=== PATIENT | female | born 1970 | race Caucasian/White ===

== ENCOUNTER 2018-03-09 05:00 | Day surgery (SDC) | payer BC ==
[2018-03-08 16:03] LABS: HEMATOCRIT 35.7 % (36.0-48.0); HEMOGLOBIN 12.3 g/dL (12-16); MCH 31.1 pg (26.0-34.0); MCHC 34.5 g/dL (31.0-37.0); MCV 90.2 fL (80.0-100.0); RBC 3.96 10x6/uL (4.00-5.40); RDW 11.9 % (11.5-14.5); WBC 8.6 10x3/uL (4.8-10.8)
[~2018-03-09] VITALS: Ht 162.6 cm; Wt 97.5 kg
--- NOTE | ~2018-03-09 | OP ---
PATIENT NAME: RICA ROSENBERG MEDICAL RECORD: [id number] :66 LOCATION:[facility] ADMISSION DATE: SURGEON: XOCHILT RICHMOND DPM DATE OF OPERATION: 03/09/2018 PREOPERATIVE DIAGNOSIS: Tailor's bunion, left foot. POSTOPERATIVE DIAGNOSIS: Tailor's bunion, left foot. PROCEDURE: Tailor's bunionectomy, left foot. ANESTHESIA: Local with IV sedation utilizing 10 cc of 1:1 mix of lidocaine and Marcaine plain around the fifth ray of the left foot. HEMOSTASIS: Left ankle tourniquet at 250 mmHg. PREOPERATIVE DETAILS: The patient was taken to the OR and placed on the operating table in a supine position. This was followed by induction of general anesthesia and infiltration of local anesthetic. The left extremity was then prepped and draped in usual aseptic technique followed by exsanguination and inflation of tourniquet. A 15 blade was used to create a 2 cm linear incision over the dorsal aspect of the fifth metatarsal head. The incision was deepened down through subcutaneous tissue being sure to avoid the sural nerve and a linear capsulotomy was made in the fifth MPJ. The head of the fifth metatarsal was then delivered. A sagittal saw was used to resect the lateral 4 mm of the metatarsal head. The rough areas were smoothed with a bone rasp. The wound was flushed. The capsule was repaired with 2-0 Vicryl, the subcutaneous tissue with 4-0 Rapide, and the skin was closed with 4-0 Rapide in a subcuticular technique followed by Dermabond. Adaptic, 4 x 4, and Conform were used to dress the wound followed by Coban. Tourniquet was deflated. POSTOPERATIVE DETAILS: The patient tolerated the procedure well and left the OR with vital signs stable and vascular status at preoperative levels. The patient was transported to recovery per anesthesia in stable condition. TRANSINT:[id number] Voice Confirmation ID: [id number] DOCUMENT ID: [id number] XOCHILT RICHMOND DPM at 1107 CC: [id number] DICTATION DATE: 03/09/18 0754 [employer]MENT: 03/09/[address] [facility] 03/09/18 [place] [address]
[~2018-03-09 05:00] MED LIST: CRESTOR10 MG PO; LEXAPRO10 MG PO; SYNTHROID88 MCG PO
[2018-03-09 05:56] VITALS: Ht 162.6 cm; Wt 97.5 kg
== END 2018-03-09 09:40 | disposition home or self-care (01) ==
LOC: D.OPS 05:00 → D.PAN 08:45 → D.OPS 08:45
PROVIDERS: Anesthesiology
DX: M21.622 Bunionette of left foot (principal); E03.9 Hypothyroidism, unspecified; Z01.812 Encounter for preprocedural laboratory examination